=== PATIENT | female | born 1940 | race Caucasian/White ===

== ENCOUNTER 2018-08-29 00:19 | Inpatient (IN) | payer MEDICARE, OTHER, BC | END 2018-09-01 14:35 | disposition home or self-care (01) | LOC: ER 00:19 → MED 3N 08-30 17:50 → ED HOLD 01:41 → PCU 3S 03:19 | PROC: 4A02XM4 Measurement of Cardiac Total Activity, External Approach (ICD-10-PCS; principal; ~2018-08-29) | PROC: 3E033HZ Introduction of Radioactive Substance into Peripheral Vein, Percutaneous Approach (ICD-10-PCS; ~2018-08-29) | PROC: CB121ZZ Planar Nuclear Medicine Imaging of Lungs and Bronchi using Technetium 99m (Tc-99m) (ICD-10-PCS; ~2018-08-29) | DX: I21.4 Non-ST elevation (NSTEMI) myocardial infarction (principal); N18.3 Chronic kidney disease, stage 3 (moderate) ==

== ENCOUNTER 2020-08-24 11:56 | Emergency (ER) | payer MEDICARE, OTHER ==
[~2020-08-24] VITALS: Ht 154.9 cm; Wt 69.1 kg
[~2020-08-24 11:56] MED LIST: APIX5TAB3 PO; INDO50CA96 PO; LEVO75TA7 PO; LISI10TA4 PO
[2020-08-24 13:39] VITALS: BP 171/73
== END 2020-08-24 14:42 | disposition home or self-care (01) ==
LOC: ER 11:57
DX: I49.3 Ventricular premature depolarization (principal); R00.2 Palpitations; Z79.01 Long term (current) use of anticoagulants; Z79.899 Other long term (current) drug therapy
CPT/HCPCS: 36415; 84484; 99283